=== PATIENT | female | born 1965 | race Caucasian/White ===

== ENCOUNTER 2023-08-18 20:04 | Observation (INO) | payer OTHER, SELFPAY ==
[2023-08-18] VITALS (9 sets, daily range): BP systolic 145–158; BP diastolic 82–86; PULSE 65–83; RESP 18; TEMP 36.3; O2SAT 94–100
--- NOTE | ~2023-08-18 | CT_ITS ---
EXAMINATION: CT abdomen pelvis wo con DATE: 08/20/2023 09:49 INDICATION: Ureteral stone. TECHNIQUE: Computed tomography (CT) of the abdomen and pelvis was performed without intravenous contr ast. Automated exposure control and iterative reconstruction technique were employed. The dose-length product was 1107.90 mGy-cm. COMPARISON: CT abdomen and pelvis 08/18/2023 FINDINGS: The visualized portions of the lung bases demonstrate mild atelectasis. No pleural effusion . The heart size is normal. No pericardial effusion. The liver and spleen are normal. There are sterling es of cholecystectomy. The pancreas, adrenal glands, and kidneys are normal. There is no urolithiasis . There are no dilated loops of bowel. The appendix is normal. There are no pathologically enlarged l ymph nodes. There is no free intraperitoneal fluid. There is a right inguinal hernia containing fat. There is mild thoracic and lumbar spondylosis. IMPRESSION: 1. No urolithiasis. Reviewed, dictated and finalized at location E. IMPRESSION: 1. No urolithiasis.
--- NOTE | ~2023-08-18 | CT_ITS ---
EXAMINATION: CT abdomen pelvis w con DATE: 08/18/2023 22:16 INDICATION: RLQ tenderness TECHNIQUE: Computed tomography (CT) of the abdomen and pelvis was performed with 100 mL Omnipaque-350 intravenous contrast. Automated exposure control and iterative reconstruction technique were employe d. The dose-length product was 864.90 mGy-cm. COMPARISON: None. FINDINGS: Lower thorax: Unremarkable Liver: Normal. Biliary/Gallbladder: Gallbladder is absent. Mild intrahepatic and extra hepatic bile duct dilation li linda secondary to cholecystectomy. Pancreas: No mass or duct dilation. Spleen: Normal. Adrenals:No mass. Kidneys: Mild right perinephric stranding. Patchy parenchymal enhancement on the right. Suggestion of much milder patchy enhancement in the left kidney. Mild right hydronephrosis. GI tract: Moderate distal esophageal and gastric wall edema. Hypermobile cecum. No small or large bow el dilation. Normal appendix. Mesentery/Peritoneum: No ascites, mass, or free air. Retroperitoneum: No mass. Atherosclerotic abdominal aortic and/or arterial calcifications. Pelvis: Absent uterus. Urinary bladder wall edema and inflammatory change. 3 mm calcific density in t he right UVJ. Soft Tissues: Soft tissues and body wall unremarkable. Bones: No acute osseous finding. IMPRESSION: Moderate esophagitis/gastritis. 3 mm right UVJ stone causing mild obstructive uropathy. Patchy bilateral renal enhancement, more notable on the right which can be seen with ascending infect ion/pyelonephritis. Cystitis. Reviewed, dictated and finalized at location K. IMPRESSION: Moderate esophagitis/gastritis. 3 mm right UVJ stone causing mild obstructive uropathy. Patchy bilateral renal enhancement, more notable on the right which can be seen with ascending infection/pyelonephritis. Cystitis.
[2023-08-18 20:35] LABS: Basophils Percent Auto 0.5 % (0.2-1.2); Hematocrit 36.4 % (37.0-47.0); Hemoglobin 11.7 g/dL (12.0-15.0); Immature Granulocyte Absolute 0.05 K/mm3 (0.00-0.031); Immature Granulocyte Percent A 0.7 % (0-0.5); Lymphocytes Absolute Auto 1.53 K/mm3 (0.9-3.2); Lymphocytes Percent Auto 20.9 % (18.3-44.2); Mean Corpuscular HGB Conc 32.1 g/dl (32-36); Mean Corpuscular Hemoglobin 28.4 pg (26-34); Mean Corpuscular Volume 88.3 fl (80-100); Mean Platelet Volume 9.2 fl (7.4-10.4); Monocytes Absolute Auto 0.4 K/mm3 (0.1-0.6); Monocytes Percent Auto 4.9 % (2.6-8.5); Neutrophils Absolute Auto 5.4 K/mm3 (1.3-6.7); Platelet Count Result 291 k/mm3 (150-375); Red Blood Count 4.12 M/mm3 (4.2-5.4); Red Cell Distribution Width 12.2 % (11.5-14.5); White Blood Count 7.3 K/mm3 (4.5-10.0)
[2023-08-18 21:07] LABS: Appearance Urine Turbid (Clear); Bacteria Urine 2+ /hpf; Bilirubin Urine Negative (Negative); Blood Urine 1+ (Negative); Color Urine Yellow (Yellow); Glucose Urine UA Negative (Negative); Ketones Urine Negative (Negative); Leukocyte Esterase Ur 3+ LEU/UL (Negative); Nitrate Urine Negative (Negative); Non Pathogenic Casts 0-2; Protein Urine Negative (Negative); Specific Grav Ur 1.017 (1.001-1.035); Squamous Epithelial Cell Urine Moderate /hpf (Few); Urobilinogen Urine 0.2 mg/dL (<2.0); WBC Urine >100 /hpf; pH Urine 5.5 (5.0-9.0)
[2023-08-18 21:28] LABS: Add Urine Microscopic? YES
[2023-08-18 21:31] LABS: Alanine Aminotransferase 22 U/L (6-35); Albumin Level 3.8 g/dL (3.5-5.1); Alkaline Phosphatase 196 U/L (38-126); Anion Gap 5 mmol/L (8-16); Aspartate Amino Transferase 28 U/L (14-36); Bilirubin,Total 0.4 mg/dL (0.2-1.3); Blood Urea Nitrogen 11 mg/dL (7-17); Calcium 9.1 mg/dL (8.4-10.2); Carbon Dioxide 28 mmol/L (22-30); Chloride 104 mmol/L (98-107); Estimated CRCL calculation 91 ml/min; Estimated Glomerular Filt Rate > 60; Glucose 179 mg/dL (65-110); Lipase 81 U/L (23-300); Potassium 4.2 mmol/L (3.4-5.0); Sodium 137 mmol/L (137-145)
--- NOTE | 2023-08-18 21:37 | ED.ABDPAIN ---
HPI - Abdominal Pain General Chief Complaint: Abdominal Pain Stated Complaint: RLQ abd pain Time Seen by Provider: 08/18/23 21:21 Source: patient Mode of arrival: ambulatory Limitations: no limitations History of Present Illness HPI narrative: This is a 58-year-old female who presents to the ED with chief complaint of lower abdominal pain beginning this morning. She reports it is gradually increased throughout the day and she has had several episodes of loose stools. Pain is worse in the right lower quadrant and generally does not radiate. Reports pain at a 7 out of 10 here. Described as a sharp pain. No specific alleviating or exacerbating factors. Denies fevers, chills, chest pain, shortness of breath,, nausea, vomiting, urinary symptoms. Related Data Home Medications Medication Instructions Recorded Confirmed amitriptyline 50 mg tablet 50 mg PO HS 08/19/23 08/19/23 celecoxib 200 mg capsule 200 mg PO QHS 08/19/23 08/19/23 cyclobenzaprine 5 mg tablet 5 mg PO HS 08/19/23 08/19/23 estradiol 1 mg tablet 1 mg PO HS 08/19/23 08/19/23 losartan 100 mg tablet 100 mg PO HS 08/19/23 08/19/23 metformin 500 mg tablet 500 mg PO QHS 08/19/23 08/19/23 metoprolol succinate 50 mg 50 mg PO QHS 08/19/23 08/19/23 tablet,extended release 24 hr sertraline 100 mg tablet 100 mg PO QHS 08/19/23 08/19/23 Allergies Allergy/AdvReac Type Severity Reaction Status Date / Time No Known Allergies Allergy Unverified 08/18/23 20:12 Review of Systems Review of Systems: All systems as dictated in HPI [facility] Family History Family History Mother Breast cancer Dementia Father Macular degeneration Addiction to drug Social History Social History Alcohol intake: former Substance use: never Lack of Transportation: No Lack of Food: Sometimes True Current Housing: I Have Housing Concerned About Future Housing: No Difficulty Paying Gas/Electric Bills: No Difficulty Paying for Meds: No Currently Unemployed: No Education: Associate Degree Difficulty w/ Childcare or Family Care: No Spiritual care concerns: No Exam Narrative: GENERAL: Well-appearing, well-nourished, and in no acute distress. HEAD: Normocephalic, atraumatic. EYES: PERRLA and EOMI. ENT: Nares clear, no rhinorrhea or epistaxis. Mucous membranes moist. Oropharynx without tonsillar hypertrophy exudate or other lesions. NECK: Supple. No adenopathy or masses. CHEST: No respiratory distress. Clear to auscultation. No wheezes rales or rhonchi HEART: Regular rate and rhythm. No murmur heard. Normal peripheral pulses. ABDOMEN: Generalized tenderness and somewhat worse in the right lower quadrant. Soft, nondistended, normal active bowel sounds. Negative peritoneal signs. MSK: Normal range of motion. No edema. SKIN: Warm, dry, no rash. NEURO: Alert and oriented x3. No focal deficits. PSYCH: Normal mood and affect. Course Vital Signs Vital signs: Vital Signs Temperature 97.4 F L 08/18/23 20:07 Pulse Rate 65 08/18/23 20:07 Respiratory Rate 18 08/18/23 20:07 Blood Pressure 158/86 H 08/18/23 20:07 Pulse Oximetry 100 08/18/23 20:07 Oxygen Delivery Room Air 08/18/23 20:07 Temperature 96.6 F L 08/19/23 01:48 Pulse Rate 83 08/19/23 01:40 Respiratory Rate 20 08/19/23 01:48 Blood Pressure 146/84 H 08/19/23 01:48 Pulse Oximetry 98 08/19/23 01:48 Oxygen Delivery Room Air 08/18/23 20:07 MDM - Abdominal Pain MDM Narrative Medical decision making narrative: This is a 58-year-old female who presents to the ED with chief complaint of right lower quadrant pain. Vitals are stable. Exam reveals right-sided abdominal tenderness. Lab work shows a normal white count at 7.3. Chemistries are unremarkable. Her urinalysis shows evidence of infection with 3+ leuks, greater than 100 whites and 2+ bacteria. CT abdomen pelvis with IV contrast: Moderate esophagitis/gastritis. 3 mm right UVJ stone causing mil
[2023-08-18] MEDS: MORPHINE SULFATE (*CRX) 4 MG/ML INJ IV PUSH (21:44)
--- NOTE | 2023-08-18 22:50 | ECG_ITS ---
Measurements Intervals [place] Rate: 71 P: 55 CO: 194 QRS: 36 QRSD: 84 T: 27 QT: 391 QTc: 426 Interpretive Statements SINUS RHYTHM NONSPECIFIC T-WAVE ABNORMALITY BORDERLINE ECG NO PREVIOUS ECG AVAILABLE FOR COMPARISON Electronically Signed On 08-19-2023 13:41:01 CDT by Basim Armstrong M.D.
[2023-08-18 23:41] LABS: INR 0.9; Prothrombin Time 12.9 Seconds (11.1-14.7)
[2023-08-19] VITALS (7 sets, daily range): BP systolic 130–146; BP diastolic 70–84; PULSE 75–83; RESP 18–20; TEMP 35.7–36.9; O2SAT 93–100; BMI 33.8
[2023-08-19] MEDS: ONDANSETRON INJ 4 MG/2 ML VIAL IV PUSH (00:32)
[2023-08-19] MEDS: KETOROLAC 15 MG/ML VIAL (*BKC) IV PUSH (00:57)
[2023-08-19] MEDS: traMADol HCL (*CRX) 50 MG TABLET PO ×2 (00:58→20:20)
[2023-08-19] MEDS: SODIUM CHLORIDE 0.9% IV 1,000 ML 125 ML IV CONT ×2 (00:58→11:40)
--- NOTE | 2023-08-19 02:09 | ADMGEN ---
This patient, Alexa Chavarria, was admitted to [facility] Surg Room 326-01. Patient/family oriented to hospital policies and general routines including ID bracelet, bed and alarms, visiting hours, pain management, procedures, bathroom and other care routines, personal items, smoking policy, room service/diet, and visiting hours. Information on how to activate the Rapid Response Team has been discussed. Patient/Family are encouraged to report perceived risks to care and to ask questions if they do not understand what they are told or what they should do.
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
[2023-08-19] MEDS: METOPROLOL SUCCINATE EXT REL 50 MG TABCR PO ×2 (03:55→20:21)
[2023-08-19] MEDS: LOSARTAN POTASSIUM 100 MG TABLET PO ×2 (03:56→20:46)
[2023-08-19] MEDS: KETOROLAC 30 MG/ML VIAL (*BKC) IV PUSH ×3 (05:24→18:20)
[2023-08-19] MEDS: SODIUM CHLORIDE 0.9% IV 1,000 ML 150 ML IV CONT (05:26)
[2023-08-19 09:21] LABS: Alanine Aminotransferase 24 U/L (6-35); Albumin Level 3.4 g/dL (3.5-5.1); Alkaline Phosphatase 170 U/L (38-126); Anion Gap 1 mmol/L (8-16); Aspartate Amino Transferase 31 U/L (14-36); Bilirubin,Total 0.3 mg/dL (0.2-1.3); Blood Urea Nitrogen 10 mg/dL (7-17); Calcium 8.4 mg/dL (8.4-10.2); Carbon Dioxide 30 mmol/L (22-30); Chloride 106 mmol/L (98-107); Estimated CRCL calculation 111 ml/min; Estimated Glomerular Filt Rate > 60; Glucose 119 mg/dL (65-110); Potassium 3.4 mmol/L (3.4-5.0); Sodium 137 mmol/L (137-145)
[2023-08-19 09:24] LABS: Hematocrit 33.9 % (37.0-47.0); Hemoglobin 10.8 g/dL (12.0-15.0); Mean Corpuscular HGB Conc 31.9 g/dl (32-36); Mean Corpuscular Hemoglobin 28.3 pg (26-34); Mean Platelet Volume 9.1 fl (7.4-10.4); Platelet Count Result 214 k/mm3 (150-375); Red Blood Count 3.81 M/mm3 (4.2-5.4); Red Cell Distribution Width 12.2 % (11.5-14.5); White Blood Count 5.5 K/mm3 (4.5-10.0)
--- NOTE | 2023-08-19 11:01 | WPDUROPN2 ---
Subjective Subjective Date/Time Seen: 08/19/23 11:01 Objective Data Vital Signs Vital Signs: Vital Signs - 24 hr 08/18/23 20:07 08/18/23 21:47 08/18/23 21:48 Temperature 36.3 C L Pulse Rate 65 68 Respiratory Rate 18 18 Blood Pressure 158/86 H 148/82 H Pulse Oximetry 100 98 100 Oxygen Delivery Room Air 08/18/23 22:28 08/18/23 22:58 08/18/23 23:00 Temperature Pulse Rate Respiratory Rate Blood Pressure Pulse Oximetry 96 97 94 Oxygen Delivery 08/18/23 23:23 08/18/23 23:30 08/18/23 23:38 Temperature Pulse Rate 83 Respiratory Rate 18 Blood Pressure 145/84 H Pulse Oximetry 97 96 100 Oxygen Delivery 08/19/23 01:40 08/19/23 03:55 08/19/23 05:07 Temperature 35.9 C L 35.7 C L Pulse Rate 83 83 75 Respiratory Rate 20 18 Blood Pressure 146/84 H 137/83 Pulse Oximetry 98 98 Oxygen Delivery 08/19/23 08:00 08/19/23 01:48 Temperature 35.9 C L Pulse Rate Respiratory Rate 20 Blood Pressure 146/84 H Pulse Oximetry 98 Oxygen Delivery Room Air Intake/Output Intake/Output: Intake & Output 08/16/23 08/17/23 08/18/23 08/19/23 23:59 23:59 23:59 23:59 Intake Total 1050 Output Total 200 Balance 850 Meds/Results Medications: Active Medications Generic Name Dose Route Start Last Admin Trade Name Freq PRN Reason Stop Dose Admin Amitriptyline HCl 50 mg 08/19/23 21:00 Amitriptyline Hcl 25 Mg Tablet PO HS ROSENDA Cyclobenzaprine HCl 5 mg 08/19/23 21:00 Cyclobenzaprine Hcl 5 Mg Tablet PO HS ROSENDA Sodium Chloride 1,000 mls @ 125 mls/hr 08/18/23 23:50 08/19/23 05:28 Normal Saline Iv IV CONT 125 mls/hr .Q8H ROSENDA Infusion Ceftriaxone Sodium 1 gm in 50 mls @ 100 mls/hr 08/20/23 00:00 Rocephin 1 Gm/Ns 50 Ml IVPB Q24H ROSEDNA Ketorolac Tromethamine 30 mg 08/18/23 23:41 08/19/23 05:24 Ketorolac 30 Mg/Ml Vial (*Bkc) IV PUSH 08/23/23 23:40 30 mg Q6H PRN Administration Pain Rated 4-6 IF NPO Losartan Potassium 100 mg 08/19/23 02:45 08/19/23 03:56 Losartan Potassium 100 Mg Tablet PO 100 mg HS ROSENDA Administration Metoprolol Succinate 50 mg 08/19/23 02:45 08/19/23 03:55 Metoprolol Succinate Ext Rel 50 Mg Tabcr PO 50 mg QHS ROSENDA Administration Morphine Sulfate 4 mg 08/18/23 23:42 Morphine Sulfate (*Crx) 4 Mg/Ml Inj IV PUSH Q3H PRN Pain Rated 7-10 Ondansetron HCl 4 mg 08/18/23 23:43 Ondansetron Inj 4 Mg/2 Ml Vial IV PUSH Q6H PRN Nausea And Vomiting Sertraline HCl 100 mg 08/19/23 21:00 Sertraline Hcl 50 Mg Tablet PO QHS ROSENDA Tramadol HCl 50 mg 08/18/23 23:42 08/19/23 00:58 Tramadol Hcl (*Crx) 50 Mg Tablet PO 50 mg Q4H PRN Administration Pain Rated 4-6 Radiology Results: ITS Impressions Abdomen/Pelvis CT 08/18/23 22:18 IMPRESSION: Moderate esophagitis/gastritis. 3 mm right UVJ stone causing mild obstructive uropathy. Patchy bilateral renal enhancement, more notable on the right which can be seen with ascending infection/pyelonephritis. Cystitis. Labs Labs: Laboratory Results - last 24 hr 08/18/23 08/18/23 08/18/23 20:18 20:55 23:19 WBC 7.3 RBC 4.12 L Hgb 11.7 L Hct 36.4 L MCV 88.3 MCH 28.4 MCHC 32.1 RDW 12.2 Plt Count 291 MPV 9.2 Immature Gran % (Auto) 0.7 H Neut % (Auto) 73.0 Lymph % (Auto) 20.9 [place] % (Auto) 4.9 Eos % (Auto) 0.0 Baso % (Auto) 0.5 Lymph # (Auto) 1.53 [place] # (Auto) 0.4 Eos # (Auto) 0.0 Baso # (Auto) 0.0 Abs Immat Gran (auto) 0.05 H Absolute Neuts (auto) 5.4 Absolute Nucleated RBC 0.0 Nucleated RBC % 0.0 PT 12.9 INR 0.9 APTT 30.0 Sodium 137 Potassium 4.2 Chloride 104 Carbon Dioxide 28 Anion Gap 5 L BUN 11 Creatinine 0.60 L Estim Creat Clear Calc 91 Estimated GFR > 60 Glucose 179 H Calcium 9.1 Total Bilirubin 0.4 AST 28 ALT 22
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
--- NOTE | 2023-08-19 13:52 | PM.IMPN ---
Progress Note: A&P Assessment and Plan (1) Pyelonephritis: Code(s): N12 - Tubulo-interstitial nephritis, not specified as acute or chronic Status: Acute Assessment and Plan: Patient has urine suggestive of UTI with CT evidence of ascending urinary tract infection in the setting of obstructing kidney stone. Empiric antibiotic therapy with Rocephin. Urine cultures pending. Will continue IV fluid hydration with normal saline at her 50 mL an hour. Adjust antibiotic therapy to culture results (2) Calculus of distal right ureter: Code(s): N20.1 - Calculus of ureter Status: Acute Assessment and Plan: Urology consulted and holding off on cystoscopy for now. Strain urine (3) Essential hypertension: Code(s): I10 - Essential (primary) hypertension Status: Acute Assessment and Plan: Will resume patient's home metoprolol and losartan. (4) Esophagitis with gastritis: Code(s): K29.70 - Gastritis, unspecified, without bleeding; K20.90 - Esophagitis, unspecified without bleeding Status: Acute Assessment and Plan: CT does demonstrate evidence of esophagitis and gastritis. PPI QAM Subjective Date/time seen: 08/19/23 13:52 Interval history: Patient managing her pain well. She still has some residual pain in the left lower quadrant. Discussed with Urology and holding off on cystoscopy for now. Will strain the urine. Waiting on urine culture results. Patient denies any dysuria, frequency and urgency. Objective Data Vital Signs Vital Signs: Vital Signs - 24 hr 08/18/23 20:07 08/18/23 21:47 08/18/23 21:48 Temperature 97.4 F L Pulse Rate 65 68 Respiratory Rate 18 18 Blood Pressure 158/86 H 148/82 H Pulse Oximetry 100 98 100 Oxygen Delivery Room Air 08/18/23 22:28 08/18/23 22:58 08/18/23 23:00 Temperature Pulse Rate Respiratory Rate Blood Pressure Pulse Oximetry 96 97 94 Oxygen Delivery 08/18/23 23:23 08/18/23 23:30 08/18/23 23:38 Temperature Pulse Rate 83 Respiratory Rate 18 Blood Pressure 145/84 H Pulse Oximetry 97 96 100 Oxygen Delivery 08/19/23 01:40 08/19/23 03:55 08/19/23 05:07 Temperature 96.6 F L 96.2 F L Pulse Rate 83 83 75 Respiratory Rate 20 18 Blood Pressure 146/84 H 137/83 Pulse Oximetry 98 98 Oxygen Delivery 08/19/23 08:00 08/19/23 01:48 Temperature 96.6 F L Pulse Rate Respiratory Rate 20 Blood Pressure 146/84 H Pulse Oximetry 98 Oxygen Delivery Room Air Intake/Output Intake/Output: Intake & Output 08/16/23 08/17/23 08/18/23 08/19/23 23:59 23:59 23:59 23:59 Intake Total 2072 Output Total 400 Balance 1672 Meds/Results Medications: Active Medications Generic Name Dose Route Start Last Admin Trade Name Freq PRN Reason Stop Dose Admin Amitriptyline HCl 50 mg 08/19/23 21:00 Amitriptyline Hcl 25 Mg Tablet PO HS ROSENDA Cyclobenzaprine HCl 5 mg 08/19/23 21:00 Cyclobenzaprine Hcl 5 Mg Tablet PO HS ROSENDA Sodium Chloride 1,000 mls @ 125 mls/hr 08/18/23 23:50 08/19/23 11:40 Normal Saline Iv IV CONT 125 mls/hr .Q8H ROSENDA Administration Ceftriaxone Sodium 1 gm in 50 mls @ 100 mls/hr 08/20/23 00:00 Rocephin 1 Gm/Ns 50 Ml IVPB Q24H ROSENDA Ketorolac Tromethamine 30 mg 08/18/23 23:41 08/19/23 11:36 Ketorolac 30 Mg/Ml Vial (*Bkc) IV PUSH 08/23/23 23:40 30 mg Q6H PRN Administration Pain Rated 4-6 IF NPO Losartan Potassium 100 mg 08/19/23 02:45 08/19/23 03:56 Losartan Potassium 100 Mg Tablet PO 100 mg HS ROSENDA Administration Metoprolol Succinate 50 mg 08/19/23 02:45 08/19/23 03:55 Metoprolol Succinate Ext Rel 50 Mg Tabcr PO 50 mg QHS ROSENDA Administration Morphine Sulfate 4 mg 08/18/23 23:42 Morphine Sulfate (*Crx) 4 Mg/Ml Inj IV PUSH Q3H PRN Pain Rated 7-10 Ondansetron HCl 4 mg 08/18/23 23:43 Ondansetron Inj 4 Mg/2 Ml Vial
[2023-08-19] MEDS: SODIUM CHLORIDE 0.9% IV 1,000 ML 100 ML IV CONT (20:20)
[2023-08-19] MEDS: CYCLOBENZAPRINE HCL 5 MG TABLET PO (20:21)
[2023-08-19] MEDS: AMITRIPTYLINE HCL 25 MG TABLET 50 MG PO (20:21)
[2023-08-19] MEDS: SERTRALINE HCL 50 MG TABLET 100 MG PO (20:21)
[2023-08-20] MEDS: traMADol HCL (*CRX) 50 MG TABLET PO (04:11)
[2023-08-20 06:00] VITALS: BP 136/66; PULSE 70; RESP 20; TEMP 36.1; O2SAT 95
[2023-08-20 06:37] LABS: Hemoglobin 10.9 g/dL (12.0-15.0); Mean Corpuscular HGB Conc 31.1 g/dl (32-36); Mean Corpuscular Hemoglobin 28.3 pg (26-34); Mean Corpuscular Volume 90.9 fl (80-100); Mean Platelet Volume 9.3 fl (7.4-10.4); Platelet Count Result 200 k/mm3 (150-375); Red Blood Count 3.85 M/mm3 (4.2-5.4); Red Cell Distribution Width 12.1 % (11.5-14.5); White Blood Count 5.2 K/mm3 (4.5-10.0)
[2023-08-20 06:48] LABS: Alanine Aminotransferase 33 U/L (6-35); Albumin Level 3.4 g/dL (3.5-5.1); Alkaline Phosphatase 173 U/L (38-126); Anion Gap 1 mmol/L (8-16); Aspartate Amino Transferase 52 U/L (14-36); Bilirubin,Total 0.3 mg/dL (0.2-1.3); Blood Urea Nitrogen 11 mg/dL (7-17); Calcium 8.3 mg/dL (8.4-10.2); Carbon Dioxide 28 mmol/L (22-30); Chloride 107 mmol/L (98-107); Estimated CRCL calculation 135 ml/min; Estimated Glomerular Filt Rate > 60; Glucose 136 mg/dL (65-110); Potassium 3.7 mmol/L (3.4-5.0); Sodium 136 mmol/L (137-145)
[2023-08-20] MEDS: SODIUM CHLORIDE 0.9% IV 1,000 ML 100 ML IV CONT (07:39)
[2023-08-20] MEDS: PANTOPRAZOLE SODIUM IV 40 MG VIAL IV PUSH (07:40)
--- NOTE | 2023-08-20 07:44 | WPDUROPN2 ---
Progress Note: A&P Assessment and Plan (1) Calculus of distal right ureter: Code(s): N20.1 - Calculus of ureter Status: Acute Assessment and Plan: Has yet to see stone pass. She has missed some episodes of straining of her urine. Will repeat imaging today. May consider intervention if stone still present (2) Abnormal urinalysis: Code(s): R82.90 - Unspecified abnormal findings in urine Status: Acute Assessment and Plan: Contamination versus infection. Clinically appears very stable without clinical signs of infection or pyelonephritis. Is on antibiotics. Urine culture is pending Subjective Subjective Date/Time Seen: 08/20/23 07:44 Review of Systems Review of Systems: She has no fevers or chills. No dysuria. No symptoms of urinary tract infection. White count is normal. Creatinine is normal as well. Patient does not clinically seem infected. Urine culture is pending. Urinalysis consistent with contamination. She continues on antibiotics. She has not seen the stone pass but admits to missing several opportunities to strain her urine. She is receiving tramadol intermittent Exam Narrative: No acute distress. No flank pain. Alert orient x3 Nontoxic-appearing Objective Data Vital Signs Vital Signs: Vital Signs - 24 hr 08/19/23 08:00 08/19/23 14:00 08/19/23 20:21 Temperature 98.5 F Pulse Rate 79 79 Respiratory Rate 18 Blood Pressure 130/76 Pulse Oximetry 100 Oxygen Delivery Room Air 08/19/23 20:00 08/19/23 22:00 08/20/23 06:00 Temperature 96.7 F L 97 F L Pulse Rate 75 70 Respiratory Rate 18 20 Blood Pressure 132/70 136/66 Pulse Oximetry 93 95 Oxygen Delivery Room Air Intake/Output Intake/Output: Intake & Output 08/17/23 08/18/23 08/19/23 08/20/23 23:59 23:59 23:59 23:59 Intake Total 4112 1100 Output Total 1200 450 Balance 2912 650 Meds/Results Medications: Active Medications Generic Name Dose Route Start Last Admin Trade Name Freq PRN Reason Stop Dose Admin Amitriptyline HCl 50 mg 08/19/23 21:00 08/19/23 20:21 Amitriptyline Hcl 25 Mg Tablet PO 50 mg HS ROSENDA Administration Cyclobenzaprine HCl 5 mg 08/19/23 21:00 08/19/23 20:21 Cyclobenzaprine Hcl 5 Mg Tablet PO 5 mg HS ROSENDA Administration Sodium Chloride 1,000 mls @ 100 mls/hr 08/18/23 23:50 08/20/23 07:39 Normal Saline Iv IV CONT 100 mls/hr .Q10H ROSENDA Administration Ceftriaxone Sodium 1 gm in 50 mls @ 100 mls/hr 08/20/23 00:00 08/20/23 01:13 Rocephin 1 Gm/Ns 50 Ml IVPB Infused Q24H ROSENDA Infusion Ketorolac Tromethamine 30 mg 08/18/23 23:41 08/19/23 18:20 Ketorolac 30 Mg/Ml Vial (*Bkc) IV PUSH 08/23/23 23:40 30 mg Q6H PRN Administration Pain Rated 4-6 IF NPO Losartan Potassium 100 mg 08/19/23 02:45 08/19/23 20:46 Losartan Potassium 100 Mg Tablet PO 100 mg HS ROSENDA Administration Metoprolol Succinate 50 mg 08/19/23 02:45 08/19/23 20:21 Metoprolol Succinate Ext Rel 50 Mg Tabcr PO 50 mg QHS ROSENDA Administration Morphine Sulfate 4 mg 08/18/23 23:42 Morphine Sulfate (*Crx) 4 Mg/Ml Inj IV PUSH Q3H PRN Pain Rated 7-10 Ondansetron HCl 4 mg 08/18/23 23:43 Ondansetron Inj 4 Mg/2 Ml Vial IV PUSH Q6H PRN Nausea And Vomiting Pantoprazole Sodium 40 mg 08/20/23 09:00 08/20/23 07:40 Pantoprazole Sodium Iv 40 Mg Vial IV PUSH 40 mg QAM ROSENDA Administration Sertraline HCl 100 mg 08/19/23 21:00 08/19/23 20:21 Sertraline Hcl 50 Mg Tablet PO 100 mg QHS ROSENDA Administration Tramadol HCl 50 mg 08/18/23 23:42 08/20/23 04:11 Tramadol Hcl (*Crx) 50 Mg Tablet PO 50 mg Q4H PRN Administration Pain Rated 4-6 Radiology Results: ITS Impressions Abdomen/Pelvis CT 08/18/23 22:18 IMPRESSION: Moderate esophagitis/gastritis. 3 mm right UVJ stone causing mild obstructive uropathy. Patchy bilateral renal enhancement, more notabl
[2023-08-20 08:00] VITALS: O2SAT 95
--- NOTE | 2023-08-20 13:32 | PM.DS ---
DS: Admitting Diagnosis Discharge Date 08/20/23 Admitting Diagnosis UTI, ureteral stone DS: Discharge Diagnosis Discharge Diagnosis (1) Pyelonephritis: Code(s): N12 - Tubulo-interstitial nephritis, not specified as acute or chronic Status: Acute (2) Calculus of distal right ureter: Code(s): N20.1 - Calculus of ureter Status: Acute (3) Essential hypertension: Code(s): I10 - Essential (primary) hypertension Status: Acute (4) Esophagitis with gastritis: Code(s): K29.70 - Gastritis, unspecified, without bleeding; K20.90 - Esophagitis, unspecified without bleeding Status: Acute DS: Summary Hospital Course Hospital Course: This is a 50-year-old female past medical history of hypertension, prediabetes prior cholecystectomy and of present to the ED on 08/19/2023 due to right lower quadrant abdominal pain. CT abdomen pelvis showed a 3 mm UVJ stone with a UA suggestive of UTI. Patient does not drink any water and admits to drinking only Tea. It is advised that she start drinking more water to aid in hydration as well as prevention of future kidney stones. She was started on Rocephin and urine cultures were ordered. urology consulted. Patient's urine was strained Although she missed the strainer a couple times and she urinated. A repeat scan was done in the morning which did not show a stone present. Urine culture came back positive for Staphylococcus species sensitive to fluoroquinolones. Patient be discharged home on Levaquin. Labs and vital signs are stable and she is medically cleared for discharge at this time Time Spent with Patient Time attestation: Total time spent providing and/or coordinating discharge services: Exam Narrative: GENERAL: Comfortable, no acute distress HENMT: moist mucous membranes EYES: EOM intact b/l NECK: no lymphadenopathy RESPIRATORY: clear to auscultation CARDIO: RRR GI: soft, nontender, bowel sounds present SKIN: no rashes EXTREMITIES: no edema, redness or tenderness DS: Data Data Completed and Pending Labs on day of discharge: Labs from last 24 hours 08/20/23 06:10 WBC 5.2 RBC 3.85 L Hgb 10.9 L Hct 35.0 L MCV 90.9 MCH 28.3 MCHC 31.1 L RDW 12.1 Plt Count 200 MPV 9.3 Sodium 136 L Potassium 3.7 Chloride 107 Carbon Dioxide 28 Anion Gap 1 L BUN 11 Creatinine 0.40 L Estim Creat Clear Calc 135 Estimated GFR > 60 Glucose 136 H Calcium 8.3 L Total Bilirubin 0.3 AST 52 H ALT 33 Alkaline Phosphatase 173 H Total Protein 6.0 L Albumin 3.4 L Discharge Plan Discharge Attending physician on discharge: Dewey Cyr Consulting providers: Cas Weems; Jaun Virgen Discharging Clinician: Eli Betancur Patient Disposition: Home, Self-Care Activity: as tolerated Diet: regular Discharge Instructions: Levofloxacin 750 mg daily for 3 more days. First dose tomorrow. Discharge disposition: Increase fluid intake. Take medications as prescribed Monitor blood pressures Avoid social areas, you wear a mask when in social settings Encouraged to continue with yearly vaccinations Return to the emergency department if he developed sudden shortness of breath, chest pain, nausea, vomiting, upset stomach or intractable diarrhea Return to the emergency department if you develop fever greater than 100.4 Follow-up with the primary care physician within 1-2 weeks Thank you for [facility] for your healthcare needs Patient Instructions: Antibiotic Form, Pain Management in Older Adults (DC) Stand Alone Forms: General Discharge Information Follow-up/Referrals: PHYSICIAN,EMERGENCY ROOM DOCTOR [Primary Care Provider] - Cas Weems MD [Physician] - Jaun Virgen MD [Physician] - Discharge Medications: New levofloxacin 750 mg tablet 750 mg PO DAILY Qty: 3 0RF Continued celecoxib 200 mg capsule 200 mg PO QHS metformin 500 mg tablet 5
[2023-08-20 14:00] VITALS: BP 158/82; PULSE 73; RESP 16; TEMP 35.9; O2SAT 97
== END 2023-08-20 16:28 | disposition home or self-care (01) ==
LOC: ANHED 23:48 → ANH3MEDSUR 08-19 02:20
PROVIDERS: Emergency Medicine; Internal Medicine Critical Care Medicine; Admitting Provider Internal Medicine; Emergency Provider Physician Assistant; Visit Provider Internal Medicine
DX: N13.2 Hydronephrosis with renal and ureteral calculous obstruction (principal); B95.7 Other staphylococcus as the cause of diseases classified elsewhere; I10 Essential (primary) hypertension; R73.03 Prediabetes; K20.90 Esophagitis, unspecified without bleeding; K29.70 Gastritis, unspecified, without bleeding; Z59.00 Homelessness unspecified; F41.9 Anxiety disorder, unspecified; F32.A Depression, unspecified; M06.9 Rheumatoid arthritis, unspecified; Z90.49 Acquired absence of other specified parts of digestive tract; Z90.710 Acquired absence of both cervix and uterus; Z79.890 Hormone replacement therapy; Z87.891 Personal history of nicotine dependence; Z79.1 Long term (current) use of non-steroidal anti-inflammatories (NSAID); Z79.84 Long term (current) use of oral hypoglycemic drugs; Z79.899 Other long term (current) drug therapy
CPT/HCPCS: 36415; 74176; 74177; 80053; 81001; 83690; 85025; 85027; 85610; 85730; 86850; 86900; 86901; 87077; 87086; 87088; 93005; 96361; 96365; 96374; 96375; 96376; 99285; A9270; C9113; G0378; G0379; J0696; J1885; J2270; J2405; J7030; Q9967